=== PATIENT | male | born 1930 | race Caucasian/White ===

== ENCOUNTER → 2017-04-23 | Outpatient (CLI) | payer OTHER ==
[2017-04-23 18:13] LABS: HEMATOCRIT 44.2 % (42-52); MEAN CELL VOLUME 92.9 fL (80-100); MEAN CORPUSCULAR HEMOGLOBIN 31.7 pg (25-34); MEAN CORPUSCULAR HGB CONC 34.2 g/dl (32-36); MEAN PLATELET VOLUME 10.3 fL (7.4-10.4); PLATELET COUNT 140 K/uL (130-400); RED BLOOD COUNT 4.76 M/uL (4.7-6.1); WHITE BLOOD COUNT 7.37 K/uL (4.8-10.8)
[2017-04-23 18:24] LABS: ALT/SGPT 9 U/L (12-78); AST/SGOT 20 U/L (15-37); BLOOD UREA NITROGEN 18 mg/dl (7-18); BUN/CREATININE RATIO 14.2 (10-20); CALCIUM 9.1 mg/dl (8.5-10.1); CARBON DIOXIDE 30 mmol/L (21-32); CHLORIDE 106 mmol/L (98-107); GLUCOSE 92 mg/dl (70-99); POTASSIUM 4.3 mmol/L (3.5-5.1); SODIUM 139 mmol/L (136-145)
[2017-04-23 18:26] LABS: ALB/GLOB RATIO 1.1 (0.9-2); ALKALINE PHOSPHATASE 108 U/L (45-117)
== END | disposition home or self-care (01) ==
LOC: C.LABMFLN 12:04
PROVIDERS: ATTEND Family Medicine
DX: R63.4 Abnormal weight loss (principal)

== ENCOUNTER → 2017-11-11 | Outpatient (CLI) | payer OTHER ==
[2017-11-11 13:46] LABS: BASO % 0.4 %; BASO ABS # 0.03 K/uL (0-0.2); EOS % 2.5 %; EOS ABS # 0.18 K/uL (0-0.5); HEMOGLOBIN 14.6 g/dL (14.0-18.0); IG# 0.03 K/uL (0.00-0.02); LYMPH % 24.4 %; LYMPH ABS # 1.75 K/uL (1.2-3.4); MEAN CELL VOLUME 92.5 fL (80-100); MEAN CORPUSCULAR HEMOGLOBIN 31.4 pg (25-34); MEAN PLATELET VOLUME 10.1 fL (7.4-10.4); MONO ABS # 0.72 K/uL (0.11-0.59); NEUT % 62.3 %; NEUT ABS # 4.46 K/uL (1.4-6.5); PLATELET COUNT 168 K/uL (130-400); RED CELL DISTRIBUTION WIDTH CV 14.1 % (11.5-14.5); RED CELL DISTRIBUTION WIDTH SD 47.3 fL (36.4-46.3); WHITE BLOOD COUNT 7.17 K/uL (4.8-10.8)
[2017-11-11 13:53] LABS: ALBUMIN 3.1 gm/dl (3.4-5.0); ALT/SGPT 8 U/L (12-78); AST/SGOT 20 U/L (15-37); BLOOD UREA NITROGEN 23 mg/dl (7-18); CALCIUM 8.6 mg/dl (8.5-10.1); CARBON DIOXIDE 27 mmol/L (21-32); CREATININE 1.21 mg/dl (0.60-1.40); GLUCOSE 90 mg/dl (70-99); POTASSIUM 4.2 mmol/L (3.5-5.1); SODIUM 137 mmol/L (136-145)
[2017-11-11 14:03] LABS: ALKALINE PHOSPHATASE 104 U/L (45-117); TOTAL PROTEIN 6.3 gm/dl (6.4-8.2)
[2017-11-13 15:56] LABS: ANA SCREEN TC 249X POSITIVE (NEGATIVE)
== END | disposition home or self-care (01) ==
LOC: C.LABMFLN 10:59
PROVIDERS: ATTEND Family Medicine
DX: C7B.1 Secondary Merkel cell carcinoma (principal); R63.4 Abnormal weight loss; Z12.5 Encounter for screening for malignant neoplasm of prostate; R21 Rash and other nonspecific skin eruption; L29.9 Pruritus, unspecified; J90 Pleural effusion, not elsewhere classified